=== PATIENT | female | born 1960 | race Caucasian/White ===

== ENCOUNTER → 2024-06-01 15:15 | Outpatient (REF) | payer OTHER, SELFPAY | LOC: HWWDC 15:15 | PROVIDERS: ATTENDING PHYSICIAN Obstetrics & Gynecology; FAMILY PHYSICIAN Family Medicine | DX: Z12.31 Encounter for screening mammogram for malignant neoplasm of breast (principal) | CPT/HCPCS: 77063; 77067 ==

== ENCOUNTER → 2025-03-29 16:59 | Outpatient (REF) | payer OTHER, SELFPAY | LOC: CLAB 16:59 | PROVIDERS: ATTENDING PHYSICIAN Specialist; OTHER PHYSICIAN Dermatology Dermatopathology | DX: D04.5 Carcinoma in situ of skin of trunk (principal) | CPT/HCPCS: 88305; 88331; 88332 ==